=== PATIENT | female | born 1960 | race Caucasian/White ===

== ENCOUNTER → 2020-03-09 | Day surgery (SDC) | payer BC, OTHER ==
[~2020-03-09] MED LIST: ALIGN4 MG PO; DICYCLOMINE HCL10 MG PO; LIDOCAINE HCL 2% LOCAL INJ 5 ML SDV VIAL INJ ONE; PROPOFOL IV EMULSION 10 MG/ML 20 ML VIAL ONE; VITRON-C TABLE1 EACH PO; ZYRTEC10 M3 PO
[2020-03-09 10:31] VITALS: BP 131/85
[2020-03-09 12:21] LABS: WBC,FECAL (FECAL LACTOFERRIN) POSITIVE (NEGATIVE)
[2020-03-10 08:23] LABS: C DIFFICILE TOXIN A&B AMP PROB NEGATIVE (NEGATIVE)
== END | disposition home or self-care (01) ==
LOC: OR 06:57
PROVIDERS: ATTEND Internal Medicine Gastroenterology
DX: Z12.11 Encounter for screening for malignant neoplasm of colon (principal); D12.4 Benign neoplasm of descending colon; K63.89 Other specified diseases of intestine; K51.00 Ulcerative (chronic) pancolitis without complications; K29.70 Gastritis, unspecified, without bleeding; K44.9 Diaphragmatic hernia without obstruction or gangrene; I10 Essential (primary) hypertension; J45.909 Unspecified asthma, uncomplicated; Z88.6 Allergy status to analgesic agent; Z88.2 Allergy status to sulfonamides; Z01.810 Encounter for preprocedural cardiovascular examination; Z01.812 Encounter for preprocedural laboratory examination; Z11.59 Encounter for screening for other viral diseases
CPT/HCPCS: 43239; 45380; 45381; 45384; 45385; 83630; 83993; 87045; 87177; 87328; 87493; 93005; J2001; J2704; U0002